=== PATIENT | female | born 2000 | race Caucasian/White ===

== ENCOUNTER → 2021-03-05 | Outpatient (CLI) | payer BC ==
[2021-03-06 09:14] LABS: FSH 4.7 mIU/mL (.); LUTEINIZING HORMONE(LH) 16.8 mIU/mL (.); TESTOSTERONE, SERUM 95 ng/dL (13-71)
[2021-03-06 10:14] LABS: INSULIN 8.4 uIU/mL (2.6-24.9)
== END ==
LOC: LAB 14:22
PROVIDERS: Physician Assistant
DX: N91.2 Amenorrhea, unspecified (principal)
CPT/HCPCS: 36415; 82627; 82947; 83001; 83002; 84146; 84403; 84443; 84702